=== PATIENT | male | born 1940 | race Caucasian/White ===

== ENCOUNTER → 2018-11-11 | Outpatient (REF) | payer MEDICARE ==
[~2018-11-11] MED LIST: AZELASTINE0.1 %; BUPROPION HCL300 MG PO; CALCIUM + D3 601 TAB PO; DOCUSATE CAL240 MG PO; MECLIZINE25 MG PO; OMEPRAZOLE10 MG PO; RECLAST5 MG/100 M IV
[2018-11-11 10:59] VITALS: BP 121/70
== END | disposition home or self-care (01) ==
LOC: ORM 10:15 → PO 10:29
PROVIDERS: ATTEND Internal Medicine Gastroenterology
DX: Z01.818 Encounter for other preprocedural examination (principal); R11.0 Nausea; R13.10 Dysphagia, unspecified; K21.9 Gastro-esophageal reflux disease without esophagitis; J30.2 Other seasonal allergic rhinitis; K59.00 Constipation, unspecified; R42 Dizziness and giddiness; M81.0 Age-related osteoporosis without current pathological fracture; Z98.890 Other specified postprocedural states; Z97.4 Presence of external hearing-aid; R06.09 Other forms of dyspnea

== ENCOUNTER 2018-11-18 07:15 | Day surgery (SDC) | payer MEDICARE ==
[~2018-11-18] VITALS: Ht 167.6 cm; Wt 95.3 kg
[2018-11-18 10:20] VITALS: BP 120/66
== END 2018-11-18 10:25 | disposition home or self-care (01) ==
LOC: ENDO 07:15 → ORM 13:15
PROVIDERS: ATTEND Internal Medicine Gastroenterology
PROC: 0D758ZZ Dilation of Esophagus, Via Natural or Artificial Opening Endoscopic (ICD-10-PCS; principal; 2018-11-18)
PROC: 0DB98ZX Excision of Duodenum, Via Natural or Artificial Opening Endoscopic, Diagnostic (ICD-10-PCS; 2018-11-18)
PROC: 0DB58ZX Excision of Esophagus, Via Natural or Artificial Opening Endoscopic, Diagnostic (ICD-10-PCS; 2018-11-18)
PROC: 0DB48ZX Excision of Esophagogastric Junction, Via Natural or Artificial Opening Endoscopic, Diagnostic (ICD-10-PCS; 2018-11-18)
DX: R13.10 Dysphagia, unspecified (principal); K21.9 Gastro-esophageal reflux disease without esophagitis; R11.0 Nausea; R14.0 Abdominal distension (gaseous); R19.7 Diarrhea, unspecified; K22.8 Other specified diseases of esophagus; K29.50 Unspecified chronic gastritis without bleeding; K59.00 Constipation, unspecified; Z86.010 Personal history of colon polyps

== ENCOUNTER 2018-12-08 08:49 | Outpatient (REF) | payer MEDICARE ==
[2018-12-08 12:26] VITALS: BP 120/71
== END 2018-12-08 15:16 | disposition home or self-care (01) ==
LOC: INF 08:49
PROVIDERS: ATTEND Internal Medicine
DX: M81.8 Other osteoporosis without current pathological fracture (principal)
CPT/HCPCS: J3489

== ENCOUNTER 2022-08-31 09:28 | Day surgery (SDC) | payer MEDICARE ==
[~2022-08-31] VITALS: Ht 167.6 cm; Wt 98.9 kg
[~2022-08-31 09:28] MED LIST changes: +ELAVIL25 M1 PO; +ROSUVASTATIN CA10 MG PO; +VIAGRA25 MG PO
[2022-08-31 13:32] VITALS: BP 100/64
== END 2022-08-31 11:53 | disposition home or self-care (01) ==
LOC: ENDO 09:28 → ORM 11:50 → ENDO 11:53 → ORM 12:20 → ENDO 12:20 → ORM 12:30
PROVIDERS: ATTEND Internal Medicine Gastroenterology
PROC: 0D738ZZ Dilation of Lower Esophagus, Via Natural or Artificial Opening Endoscopic (ICD-10-PCS; principal; 2022-08-31)
PROC: 0DB28ZX Excision of Middle Esophagus, Via Natural or Artificial Opening Endoscopic, Diagnostic (ICD-10-PCS; 2022-08-31)
PROC: 0DB78ZX Excision of Stomach, Pylorus, Via Natural or Artificial Opening Endoscopic, Diagnostic (ICD-10-PCS; 2022-08-31)
PROC: 0DBN8ZX Excision of Sigmoid Colon, Via Natural or Artificial Opening Endoscopic, Diagnostic (ICD-10-PCS; 2022-08-31)
DX: K22.2 Esophageal obstruction (principal); K44.9 Diaphragmatic hernia without obstruction or gangrene; K29.70 Gastritis, unspecified, without bleeding; K20.90 Esophagitis, unspecified without bleeding; D12.5 Benign neoplasm of sigmoid colon; K57.30 Diverticulosis of large intestine without perforation or abscess without bleeding; K64.8 Other hemorrhoids; E78.5 Hyperlipidemia, unspecified; Z86.010 Personal history of colon polyps